=== PATIENT | male | born 1970 | race Caucasian/White ===

== ENCOUNTER 2019-12-14 13:40 | Outpatient (CLI) | payer BC ==
--- NOTE | 2019-12-14 14:47 | ULT ---
SCROTAL ULTRASOUND INDICATION: Swelling, pain and palpable abnormality in the right testicle TECHNIQUE: Grayscale, color Doppler spectral Doppler images were obtained of the scrotum. COMPARISON: None. FINDINGS: Right Testicle: Size: 4.5 x 3.2 x 3.9 cm. There is slight prominence of the rete testis of the right testicle. Flow: There is normal vascular flow to the right testicle Hydrocele: There is a small right hydrocele Epididymis: 3.5 x 3.9 x 2.9 cm right epididymal head cyst. Left Testicle: Size: 3.3 x 2.5 x 2.9 cm. Flow: There is normal vascular flow to left testicle. Hydrocele: No left sided hydrocele seen. Epididymis: The left epididymis appears within normal limits. Additional findings: None. Impression: 1. Large right epididymal head cyst. 2. No intratesticular mass or torsion. 3. Small right hydrocele
== END 2019-12-14 13:41 | disposition home or self-care (01) ==
LOC: BICULT 13:40
PROVIDERS: ATTEND Family Medicine
DX: N50.89 Other specified disorders of the male genital organs (principal); N50.3 Cyst of epididymis; N43.3 Hydrocele, unspecified
CPT/HCPCS: 76870; 93976